=== PATIENT | female | born 1955 | race African-American/Black ===

== ENCOUNTER 2020-05-12 12:38 | Inpatient (IN) | payer OTHER ==
[~2020-05-12] VITALS: Ht 157.5 cm; Wt 92.1 kg
[2020-05-12] MEDS ORDERED: ALOG25TA2 PO (13:52)
[2020-05-12] MEDS ORDERED: HYDR25TA4 PO (13:52)
[2020-05-12] MEDS ORDERED: CALC-481 PO (13:52)
[2020-05-12] MEDS ORDERED: PIOG30TA10 PO (13:52)
[2020-05-12] MEDS ORDERED: LORA10TA7 PO (13:52)
[2020-05-12] MEDS ORDERED: GLIP10TA11 PO (13:52)
[2020-05-12] MEDS ORDERED: QUIN40TA14 PO (13:52)
[2020-05-12] MEDS ORDERED: ATOR40TA PO (13:52)
[2020-05-12] MEDS ORDERED: ACETAMINOPHEN ES 500 MG TABLET PO ONE (15:00)
--- NOTE | 2020-05-12 15:22 | NUR ---
BLOOD COLLECTED AND SENT TO LAB
--- NOTE | 2020-05-12 15:23 | NUR ---
PT CAME TO THE ER C/O FEVER AND COUGH X 7 DAYS. PT AAOX4, SATTING 89% ON RA, PLACED ON 3LPM O2 VIA N/C SATTING 98%. PT CONNECTED TO THE CLINIC OFFICE COORDINATOR AND POX
[2020-05-12] MEDS ORDERED: IV NS 0.9% 1,000 ML BAG IV ONE (15:30)
[2020-05-12 15:39] LABS: BASOPHILS % (AUTO) 0.2 % (0.0-2.0); HEMATOCRIT 39 % (33-45); HEMOGLOBIN 12.9 g/dL (11.5-14.8); MEAN CORPUSCULAR HGB CONC 33 g/dl (31.0-36.0); MEAN CORPUSCULAR VOLUME 79 fL (82-100); MONOCYTES # (AUTO) 0.6 /CMM (0.1-1.30); MONOCYTES % (AUTO) 8.2 % (2.0-12.0); NEUTROPHILS % (AUTO) 78.6 % (43.0-81.0); PLATELET COUNT (AUTO) 183 /CMM (150-450); RED BLOOD CELL COUNT(AUTO) 5.02 MIL/uL (4.0-5.2); WHITE BLOOD COUNT (AUTO) 7.7 K/uL (4.3-11.0)
[2020-05-12] MEDS ORDERED: ACETAMINOPHEN ES 500 MG TABLET ONE (15:42)
[2020-05-12 16:07] LABS: CALCIUM, SERUM 8.9 mg/dL (8.5-10.1); CARBON DIOXIDE 24 mmol/L (21-32); CHLORIDE 90 mmol/L (98-107); CREATININE 1.3 mg/dL (0.6-1.3); GLUCOSE 304 mg/dL (74-106); POTASSIUM 3.2 mmol/L (3.5-5.1); SODIUM SERUM 128 mmol/L (136-145); UREA NITROGEN, BLOOD 30 mg/dL (7-18)
--- NOTE | 2020-05-12 16:12 | NUR ---
PT UNABLE TO PROVIDE URINE AT THIS TIME. MD SHELBY
[2020-05-12 16:19] LABS: ALANINE AMINOTRANSFERASE 30 U/L (12-78); ALBUMIN 3.3 g/dL (3.4-5.0); ALKALINE PHOSPHATASE 88 U/L (46-116); ASPARTATE AMINOTRANSFERASE 35 U/L (15-37); B-TYPE NATRIURETIC PEPTIDE 347 PG/ML (0-125); BILIRUBIN,TOTAL 0.4 mg/dL (0.2-1.0); TOTAL PROTEIN, SERUM 8.4 g/dL (6.4-8.2)
--- NOTE | 2020-05-12 16:21 | NUR ---
BLOOD SAMPLE CLOTTED PER LAB, WILL REDRAW BLOOD SAMPLE
[2020-05-12 16:22] LABS: CREATINE KINASE, TOTAL 86 U/L (26-192); FERRITIN 518 ng/mL (8-388)
[2020-05-12 16:31] LABS: C-REACTIVE PROTEIN 28.8 mg/dL (0.0-0.9)
--- NOTE | 2020-05-12 17:51 | NUR ---
cllinical update provided to terell leonardo at [facility]
[2020-05-12 18:54] LABS: D-DIMER 1.64 mg/L(FEU (0.17-0.50)
[2020-05-12] MEDS ORDERED: ONDANSETRON HCL/PF 4 MG/2 ML VIAL IVP PRN (20:30)
[2020-05-12] MEDS ORDERED: POTASSIUM CHLORIDE 20 MEQ TAB.PRT.SR PO ONE ×2 (20:30→23:00)
[2020-05-12] MEDS ORDERED: DEXTROSE 50%-WATER 50 ML DISP.SYRIN IV PRN (20:30)
--- NOTE | 2020-05-12 21:04 | NUR ---
REPORT GIVEN TO СЕРГЕЙ KATZ FOR KORY
[2020-05-12] MEDS ORDERED: LISINOPRIL (20MG) 20 MG TABLET PO STA (21:06)
--- NOTE | 2020-05-12 21:51 | NUR ---
RN ADMITTING NOTE: Received report from ER Nurse, Lisa. Patient was transferred to unit via gurney. Patient awake, alert, and oriented x4. Able to make needs known. Oriented patient to room and educated on the use of the call light. Patient on 3L Oxygen nasal canula. Patient breathing equal and unlabored, No SOB or acute respiratory distress noted. Noted IV access on right hand, 20 gauge, patent, no erythema, or infiltration. Patient skin in tact. Safety measure in place, bed is in the lowest level, bed is locked, alarm is on, and side rails x2 are up, and call light is within reach. Will continue to monitor.
--- NOTE | 2020-05-12 21:51 | NUR ---
TAKEN UP TO ASSIGNED ROOM FOR KORY.
[2020-05-12] MEDS: AZITHROMYCIN 250 MG TABLET PO SCH (22:27)
[2020-05-12] MEDS: ATORVASTATIN 40 MG TABLET PO SCH (22:27)
[2020-05-12] MEDS: BLOOD SUGAR DIAGNOSTIC 1 EACH STRIP IN SCH (22:27)
[2020-05-12] MEDS: INSULIN REGULAR, HUMAN 100 UNIT/ML 3 ML VIAL SQ PRN (22:38)
[2020-05-12 22:53] VITALS: BP 172/72
--- NOTE | 2020-05-12 23:00 | NUR ---
Patient BP elevated, 172/72 HR 105. Rechecked 166/68 HR 84. Made MD aware, awaiting orders.
[2020-05-13] VITALS: BP 157/66
[2020-05-13] MEDS ORDERED: hydrALAZINE HCL IV 20 MG VIAL IV PRN
[2020-05-13 04:00] VITALS: BP 155/74
[2020-05-13] MEDS: INSULIN REGULAR, HUMAN 100 UNIT/ML 3 ML VIAL SQ PRN ×4 (06:50→21:28)
[2020-05-13] MEDS: BLOOD SUGAR DIAGNOSTIC 1 EACH STRIP IN SCH ×4 (06:53→21:10)
--- NOTE | 2020-05-13 07:52 | NUR ---
RN CLOSING NOTE: Patient in bed resting comfortably. Patient breathing even and unlabored with no SOB or acute respiratory distress. All needs were met. Safety measures maintained. Bed is in the lowest level, bed is locked, alarm is on, side rails x2 are up, and call light is within reach. Endorsed to morning nurse.
[2020-05-13 08:00] VITALS: BP 121/59
--- NOTE | 2020-05-13 08:00 | NUR ---
tele electrical fitter: initial assessment received pt in bed awake, a/ox4l; icelandic/andorran speaking. afebrile. no distress noted. will continue to monitor.
[2020-05-13] MEDS: glipiZIDE 10 MG TABLET PO SCH ×3 (08:57→16:49)
[2020-05-13] MEDS: AMLODIPINE BESYLATE 5 MG TABLET PO SCH (08:57)
[2020-05-13] MEDS: LORATADINE 10 MG TABLET PO SCH (08:57)
[2020-05-13] MEDS: PIOGLITAZONE HCL 15 MG TABLET PO SCH (08:57)
[2020-05-13] MEDS: LISINOPRIL (20MG) 20 MG TABLET PO SCH (08:57)
[2020-05-13] MEDS ORDERED: HYDROCHLOROTHIAZIDE 25 MG TABLET PO SCH (09:00)
[2020-05-13] MEDS ORDERED: Medication Not On Formulary EA (Alogliptin Benzoate (Alogliptin) 25 MG) PO SCH (09:00)
[2020-05-13] MEDS: ENOXAPARIN SODIUM 40 MG/0.4 ML DISP.SYRIN SQ SCH (09:05)
[2020-05-13] MEDS: LINAGLIPTIN 5 MG TABLET PO SCH (11:55)
--- NOTE | 2020-05-13 14:00 | NUR ---
tele rubber gasket inspector trimmer: pulmo consult seen by dr. desai with orders. orders acknowledged.
--- NOTE | 2020-05-13 14:50 | NUR ---
tele electrician apprentice powerhouse: notes covid 19 antigen collected and sent to lab.
[2020-05-13] MEDS: DEXAMETHASONE SOD PHOSPHATE 10 MG/ML VIAL IV SCH (15:00)
--- NOTE | 2020-05-13 15:00 | NUR ---
tele mechanical engineering teacher: md visit seen and examined by karen florez (plasma processor) with orders. orders acknowledged.
[2020-05-13 16:00] VITALS: BP 129/83
[2020-05-13] MEDS ORDERED: CEFTRIAXONE 1 G in IV D5W 50 ML IV SCH (17:00)
--- NOTE | 2020-05-13 17:01 | NUR ---
spoke with patient, states her is also admitted due to COVID-19 infection. Patient lives locally with spouse. Prior to admission, she was ambulatory and independent with adl's. Has no DME or homehealth reported. Has good family support. She plan to return home once discharge. Addendum: 05/13/20 at 1701 by STEPHEN OCHOA RN Amended: Links added.
--- NOTE | 2020-05-13 18:40 | NUR ---
tele otc clerk: notes in bed sounds asleep. no distress noted. needs attended. will continue to monitor.
--- NOTE | 2020-05-13 19:05 | NUR ---
tele welding machine operator plasma arc: notes report given to charlene for continuity of care.
[2020-05-13 20:00] VITALS: BP 129/72
[2020-05-13] MEDS: ATORVASTATIN 40 MG TABLET PO SCH (21:12)
[2020-05-13] MEDS: AZITHROMYCIN 250 MG TABLET PO SCH (21:12)
[2020-05-14] VITALS: BP 139/63
--- NOTE | 2020-05-14 01:33 | NUR ---
TELE-1/GRAIN COMMODITY MANAGER PT SATURATION 85-88% ON 3L NASAL CANNULA. PT PLACED ON SIMPLE MASK 10L SATURATION INCREASED TO 91% WILL CONTINUE TO MONITOR.
--- NOTE | 2020-05-14 02:22 | NUR ---
TELE-1/LOST CHARGE CARD CLERK PT PLACED BACK ON NASAL CANNULA 5L SATURATION 90% WILL CONTINUE TO MONITOR.
--- NOTE | 2020-05-14 02:41 | NUR ---
TELE-1/AUTOMATIC TRIMMING SEWER PT REFUSING TO WEAR SIMPLE MASK. COLIN RUSHING EXPLAINED IN SAMMARINESE THE RISKS OF LOW 02 SATURATION. PT STATES SHE DOES NOT WANT TO WEAR SIMPLE MASK. PT ALSO REFUSING TO WEAR TELE MONITOR. WILL CONINUE TO MONITOR.
[2020-05-14 04:00] VITALS: BP 132/59
[2020-05-14 07:03] LABS: CREATININE 1.1 mg/dL (0.6-1.3); MAGNESIUM 2.3 mg/dL (1.8-2.4); PHOSPHORUS 3.6 mg/dL (2.5-4.9); POTASSIUM 3.7 mmol/L (3.5-5.1)
--- NOTE | 2020-05-14 07:30 | NUR ---
TELE/RN OPENING NOTE Patient resting in bed, A&O x 4, Cymraes speaking. No complaints of pain/discomfort at this time. Breathing even and non-labored on 5 L oxygen via NC, no respiratory distress noted. No cardiac distress noted, on tele monitor, reading SR 70s. IV access noted on R hand #20, patent and intact, and flushing well. Sensation from all peripheral extremities intact. Side rails x2 up, bed locked to its lowest position, call light in hand. Will continue with current medical management.
[2020-05-14 08:00] VITALS: BP 100/75
[2020-05-14] MEDS: AMLODIPINE BESYLATE 5 MG TABLET PO SCH (09:00)
[2020-05-14] MEDS: LISINOPRIL (20MG) 20 MG TABLET PO SCH (09:00)
--- NOTE | 2020-05-14 09:00 | NUR ---
TELE/RN NOTE Increased patient's oxygen to 10 L via NC, since patient is saturating at 88% on 5 L oxygen. MD notified. Will continue to monitor, patient is currently saturating 94-96%.
[2020-05-14] MEDS: BLOOD SUGAR DIAGNOSTIC 1 EACH STRIP IN SCH ×4 (10:34→23:05)
[2020-05-14] MEDS: INSULIN REGULAR, HUMAN 100 UNIT/ML 3 ML VIAL SQ PRN ×5 (10:35→23:05)
[2020-05-14] MEDS: LORATADINE 10 MG TABLET PO SCH (10:36)
[2020-05-14] MEDS: glipiZIDE 10 MG TABLET PO SCH ×3 (10:36→16:59)
[2020-05-14] MEDS: PIOGLITAZONE HCL 15 MG TABLET PO SCH (10:38)
[2020-05-14] MEDS: LINAGLIPTIN 5 MG TABLET PO SCH (10:38)
[2020-05-14] MEDS: ENOXAPARIN SODIUM 40 MG/0.4 ML DISP.SYRIN SQ SCH (10:39)
--- NOTE | 2020-05-14 10:57 | NUR ---
TELE/RN NOTE Patient refused to eat breakfast, non-administered insulin. BS 281.
[2020-05-14] MEDS: DEXAMETHASONE SOD PHOSPHATE 10 MG/ML VIAL IV SCH (11:31)
[2020-05-14 12:00] VITALS: BP 119/64
[2020-05-14 13:50] LABS: THYROID STIMULATING HORMONE 0.28 uIU/mL (0.358-3.74); URIC ACID 7.3 mg/dL (2.6-7.2)
[2020-05-14] MEDS ORDERED: REMDESIVIR (CHARGED) 200 MG, *LOADING DOSE 1 EA in IV NS 0.9% 210 ML IV ONE (14:00)
[2020-05-14 16:00] VITALS: BP 144/63
--- NOTE | 2020-05-14 19:30 | NUR ---
TELE/RN OPENING NOTE Patient resting in bed, A&O x 4. All needs met and attended to. No complaints of pain/discomfort at this time. Breathing even and non-labored on 10 L oxygen via NC, no respiratory distress noted. No cardiac distress noted, on tele monitor, reading SR 70s. IV access noted on R hand #20, patent and intact, and flushing well. Sensation from all peripheral extremities intact. Fall precautions maintained. Will endorse to night filler nurse. Addendum: 05/14/20 at 1959 by ROQUE PETTY RN CORRECTION: CLOSING NOTE
--- NOTE | 2020-05-14 19:30 | NUR ---
TELE/RN CLOSING NOTE Patient resting in bed, A&O x 4. All needs met and attended to. No complaints of pain/discomfort at this time. Breathing even and non-labored on 10 L oxygen via NC, no respiratory distress noted. No cardiac distress noted, on tele monitor, reading SR 70s. IV access noted on R hand #20, patent and intact, and flushing well. Sensation from all peripheral extremities intact. Fall precautions maintained. Will endorse to police shift commander nurse.
--- NOTE | 2020-05-14 19:45 | NUR ---
TRADITIONAL MAORI HEALTH PRACTITIONER OPENING NOTES PATIENT AWAKE IN BED. PRIMARY LANGUAGE MALIAN, ABLE TO SPEAK/UNDERSTAND LITTLE SLOVENIAN. A/OX4. ON 10 L NC; NO S/S OF ACUTE RESPIRATORY DISTRESS; BREATHING IS EVEN AND UNLABORED. PATIENT REFUSING TO WEAR OXYGEN MASK AT THIS TIME; STATES SHE PREFERS TO WEAR NASAL CANULA. TELE MONITOR READING NSR, HEART RATE 79. IV PRESENT ON RIGHT HAND, SIZE 20, INTACT & PATENT, HEP LOCKED. CONTACT/DROPLET PRECAUTIONS IN PLACE FOR POSITIVE COVID 19. SAFETY MEASURES IN PLACE AND PATIENT'S NEEDS MET. BED LOCKED, HOB ELEVATED, SIDE RAILS X2, CALL LIGHT WITHIN REACH. WILL CONTINUE TO MONITOR.
[2020-05-14 20:00] VITALS: BP 142/67
[2020-05-14] MEDS: DOXYCYCLINE HYCLATE (100 MG) 100 MG TABLET PO SCH (20:43)
[2020-05-14] MEDS: CEFEPIME 1 GM in IV D5W 50 ML IV SCH (20:43)
[2020-05-14] MEDS: ATORVASTATIN 40 MG TABLET PO SCH (22:44)
[2020-05-15] VITALS: BP 155/81
[2020-05-15 04:00] VITALS: BP 158/88
[2020-05-15] MEDS: BLOOD SUGAR DIAGNOSTIC 1 EACH STRIP IN SCH ×4 (07:02→22:17)
[2020-05-15] MEDS: INSULIN REGULAR, HUMAN 100 UNIT/ML 3 ML VIAL SQ PRN ×4 (07:02→22:21)
--- NOTE | 2020-05-15 07:36 | NUR ---
WATER TREATMENT SPECIALIST CLOSING NOTES PATIENT AWAKE IN BED. A/OX4. ON 10 L NC; STILL REFUSING TO WEAR OXYGEN MASK AT THIS TIME; NO S/S OF ACUTE RESPIRATORY DISTRESS; BREATHING IS EVEN AND UNLABORED. NO C/O PAIN. TELE MONITOR READING NSR. IV PRESENT ON RIGHT HAND, SIZE 20, INTACT & PATENT, HEP LOCKED. SAFETY MEASURES IN PLACE AND PATIENT'S NEEDS MET. BED LOCKED, HOB ELEVATED, SIDE RAILS X2, CALL LIGHT WITHIN REACH. ENDORSED TO DAY SHIFT RN PLAN OF CARE.
--- NOTE | 2020-05-15 08:00 | NUR ---
RACK LOADER OPENING NOTES RECEIVED PT ON BED, AAOX4, ON O2 AT 10 LPM N/C, SATING 94%. REFUSED MASK NO PRESENCE OF ACUTE RESPIRATORY DISTRESS. ABD SOFT AND NON DISTENDED. DENIES PAIN AND DISCOMFORT. SKIN WARM TO TOUCH AND DRY. ON ISOLATION FOR + COVID19, PPE UTILIZED PER PROTOCOL. IV AT RIGHT HAND #20 H/L PATENT IN FLUSHING, NO S/SX OF INFILTRATION. TELE MONITOR SHOWS NSR 82. CONT TO MONITOR CARE.
[2020-05-15 08:22] LABS: BASOPHILS % (AUTO) 0.3 % (0.0-2.0); HEMATOCRIT 36 % (33-45); HEMOGLOBIN 12.2 g/dL (11.5-14.8); LYMPHOCYTES # (AUTO) 0.9 /CMM (0.8-4.8); LYMPHOCYTES % (AUTO) 9.1 % (20.0-44.0); MEAN CORPUSCULAR HGB CONC 34 g/dl (31.0-36.0); MEAN CORPUSCULAR VOLUME 78 fL (82-100); MONOCYTES # (AUTO) 0.9 /CMM (0.1-1.30); NEUTROPHILS # (AUTO) 7.9 /CMM (1.8-8.9); NEUTROPHILS % (AUTO) 81.6 % (43.0-81.0); PLATELET COUNT (AUTO) 233 /CMM (150-450); RED BLOOD CELL COUNT(AUTO) 4.68 MIL/uL (4.0-5.2); WHITE BLOOD COUNT (AUTO) 9.7 K/uL (4.3-11.0)
[2020-05-15] MEDS: LISINOPRIL (20MG) 20 MG TABLET PO SCH (08:58)
[2020-05-15] MEDS: PIOGLITAZONE HCL 15 MG TABLET PO SCH (08:59)
[2020-05-15] MEDS: AMLODIPINE BESYLATE 5 MG TABLET PO SCH (08:59)
[2020-05-15] MEDS: LORATADINE 10 MG TABLET PO SCH (08:59)
[2020-05-15] MEDS: glipiZIDE 10 MG TABLET PO SCH (08:59)
[2020-05-15] MEDS: DOXYCYCLINE HYCLATE (100 MG) 100 MG TABLET PO SCH ×2 (08:59→20:19)
[2020-05-15] MEDS: LINAGLIPTIN 5 MG TABLET PO SCH (08:59)
[2020-05-15] MEDS: DEXAMETHASONE SOD PHOSPHATE 10 MG/ML VIAL IV SCH (08:59)
[2020-05-15] MEDS: ENOXAPARIN SODIUM 40 MG/0.4 ML DISP.SYRIN SQ SCH (09:00)
[2020-05-15] MEDS: CEFEPIME 1 GM in IV D5W 50 ML IV SCH ×2 (09:00→20:19)
[2020-05-15 09:52] LABS: ALBUMIN 2.7 g/dL (3.4-5.0); BILIRUBIN,DIRECT 0.1 mg/dL (0.0-0.2); BILIRUBIN,TOTAL 0.4 mg/dL (0.2-1.0); CALCIUM, SERUM 9.3 mg/dL (8.5-10.1); POTASSIUM 3.8 mmol/L (3.5-5.1); TOTAL PROTEIN, SERUM 7.6 g/dL (6.4-8.2)
[2020-05-15 10:44] VITALS: BP 158/77
--- NOTE | 2020-05-15 12:12 | NUR ---
EDITOR MANAGING NEWSPAPER NOTES BS 408, RE-CHECKED 400. [address] FLANNERY NOTED[address] LISPRO ORDERED BY .
[2020-05-15 13:16] VITALS: BP 148/67
--- NOTE | 2020-05-15 14:50 | NUR ---
PROFESSOR OF HISTORY NOTES REMDESIVIR IV STILL MIXING PER PHARMACY, TO FF UP FOR ADMIN DUE
[2020-05-15] MEDS: REMDESIVIR (CHARGED) 100 MG in IV NS 0.9% 230 ML IV SCH (15:07)
[2020-05-15 16:55] VITALS: BP 143/67
--- NOTE | 2020-05-15 18:04 | NUR ---
TRUST MANAGER NOTES PER PHARMACY, LISPRO NOT AVAILABLE. DR. FLANNERY NOTIFIED WITH NEW ORDER TO CHANGE NPH SAME ORDER. ORDER READ BACK, NOTED AND CARRIED OUT. HU FROM PHARMACY NOTIFIED. WILL SEND OUT.
[2020-05-15] MEDS ORDERED: INSULIN ASPART/LISPRO 100 UNIT/ML CARTRIDGE SQ SCH (18:30)
[2020-05-15] MEDS: INSULIN NPH, HUMAN ISOPHANE 100 UNIT/ML VIAL SQ SCH (18:45)
--- NOTE | 2020-05-15 19:33 | NUR ---
DIALYSIS CLINICAL MANAGER CLOSING NOTES PT AAOX4, RESPONSIVE TO ALL STIMULI. TOLERATING O2 AT 7 LPM VIA NASAL CANNULA SATING >92%, NO PRESENCE OF ACUTE RESPIRATORY DISTRESS. NO CRITICAL CHANGE OF CONDITION. TELE MONITOR SHOWS NSR. PT COVID-19 POSITIVE, PPE UTILIZED PER HOSPITAL PROTOCOL. ALL CONCERNS ATTENDED. BED IN LOW LOCKED, SRX2 UP FOR SAFETY, CALL LIGHT WITHIN REACHED. ENDORSED CARE TO NEXT SHIFT.
[2020-05-15 20:00] VITALS: BP 152/71
[2020-05-15] MEDS ORDERED: INSULIN GLARGINE, 100 UNIT/ML CARTRIDGE SQ SCH (22:00)
[2020-05-15] MEDS: ATORVASTATIN 40 MG TABLET PO SCH (22:21)
[2020-05-16] VITALS: BP 155/73
[2020-05-16 04:00] VITALS: BP 140/63
--- NOTE | 2020-05-16 07:30 | NUR ---
RN OPENING NOTE PT AWAKE SITTING UP IN BED ON NC 6LPM WITH NO SIGNS OF RESP DISTRESS OR SOB, BREATHING IS UNLABORED AND EVEN. PT IS A/Ox4, HAS A RT HAND #20 INTACT, FLUSHED, AND SL WITH NO SIGNS OF INFECTION OR INFILTRATION. PT DENIES PAIN AT THIS TIME. ALL SAFETY PRECAUTIONS IN PLACE, WILL CONTINUE TO MONITOR
--- NOTE | 2020-05-16 07:30 | NUR ---
RN NOTE PT STAYED STABLE DURING MY SHIFT,REPORT GIVEN TO INCOMING SHIFT FOR KORY.
[2020-05-16 07:36] LABS: BASOPHILS % (AUTO) 0.1 % (0.0-2.0); EOSINOPHILS % (AUTO) 0.1 % (0.0-6.0); HEMATOCRIT 36 % (33-45); LYMPHOCYTES # (AUTO) 1.1 /CMM (0.8-4.8); LYMPHOCYTES % (AUTO) 11.2 % (20.0-44.0); MEAN CORPUSCULAR HGB CONC 33 g/dl (31.0-36.0); MEAN CORPUSCULAR VOLUME 77 fL (82-100); MONOCYTES # (AUTO) 0.9 /CMM (0.1-1.30); MONOCYTES % (AUTO) 9.7 % (2.0-12.0); NEUTROPHILS # (AUTO) 7.5 /CMM (1.8-8.9); NEUTROPHILS % (AUTO) 78.9 % (43.0-81.0); PLATELET COUNT (AUTO) 277 /CMM (150-450); RED BLOOD CELL COUNT(AUTO) 4.66 MIL/uL (4.0-5.2); WHITE BLOOD COUNT (AUTO) 9.5 K/uL (4.3-11.0)
[2020-05-16 07:57] LABS: ALBUMIN 2.6 g/dL (3.4-5.0); BILIRUBIN,DIRECT 0.1 mg/dL (0.0-0.2); BILIRUBIN,TOTAL 0.3 mg/dL (0.2-1.0); CALCIUM, SERUM 9.3 mg/dL (8.5-10.1); CREATININE 0.9 mg/dL (0.6-1.3); POTASSIUM 3.3 mmol/L (3.5-5.1); TOTAL PROTEIN, SERUM 7.2 g/dL (6.4-8.2)
[2020-05-16 08:00] VITALS: BP 143/64
[2020-05-16] MEDS: BLOOD SUGAR DIAGNOSTIC 1 EACH STRIP IN SCH ×4 (10:59→22:00)
[2020-05-16] MEDS: CEFEPIME 1 GM in IV D5W 50 ML IV SCH ×2 (11:00→21:05)
[2020-05-16] MEDS: AMLODIPINE BESYLATE 5 MG TABLET PO SCH (11:01)
[2020-05-16] MEDS: DOXYCYCLINE HYCLATE (100 MG) 100 MG TABLET PO SCH ×2 (11:01→21:47)
[2020-05-16] MEDS: DEXAMETHASONE SOD PHOSPHATE 10 MG/ML VIAL IV SCH (11:02)
[2020-05-16] MEDS: LORATADINE 10 MG TABLET PO SCH (11:03)
[2020-05-16] MEDS: LISINOPRIL (20MG) 20 MG TABLET PO SCH (11:03)
[2020-05-16 11:05] LABS: BAND % (MANUAL) 2 % (0.0-5.0); LYMPHOCYTES % (MANUAL) 21 % (16-48); MONOCYTES % (MANUAL) 2 % (0-11.0); NEUTROPHILS % (MANUAL) 75 (42-76)
[2020-05-16] MEDS: INSULIN REGULAR, HUMAN 100 UNIT/ML 3 ML VIAL SQ PRN ×4 (11:08→23:54)
[2020-05-16] MEDS: ENOXAPARIN SODIUM 40 MG/0.4 ML DISP.SYRIN SQ SCH (11:09)
[2020-05-16] MEDS: INSULIN NPH, HUMAN ISOPHANE 100 UNIT/ML VIAL SQ SCH ×2 (11:10→17:45)
[2020-05-16] MEDS ORDERED: POTASSIUM CHLORIDE 20 MEQ TAB.PRT.SR PO SCH ×2 (11:30→13:30)
[2020-05-16 12:00] VITALS: BP 116/63
--- NOTE | 2020-05-16 13:00 | NUR ---
RN NOTE PUT PT ON MASK AT 6LPM TOLERATING WELL. NO SIGNS OF RESP DISTRESS OR SOB. PT DENIES PAIN Addendum: 05/16/20 at 2136 by YANET NEIL RN WRONG PT
--- NOTE | 2020-05-16 13:27 | NUR ---
RN NOTE WAS NOT ABLE TO ADMIN POTASSIUM CHLORIDE AT 1330. CALLED PHARM, THEY WILL RESCHEDULE FOR NOW
[2020-05-16] MEDS: REMDESIVIR (CHARGED) 100 MG in IV NS 0.9% 230 ML IV SCH (15:05)
--- NOTE | 2020-05-16 15:30 | NUR ---
RN NOTE PT RESTING IN BED COMFORTABLY, NO SIGNS FO RESP DISTRESS OR SOB
[2020-05-16 16:00] VITALS: BP 113/55
[2020-05-16 20:00] VITALS: BP 141/60
--- NOTE | 2020-05-16 21:37 | NUR ---
RN CLOSING NOTE PT IN STABLE CONDITION. NO CHANGES TO PT STATUS DURING SHIFT. NO SIGNS OF RESP DISTRESS OR SOB. ALL SAFETY PRECAUTIONS IN PLACE. WILL ENDORSE KORY TO ONCOMING RN
[2020-05-16] MEDS: ACETAMINOPHEN 325 MG TABLET PO PRN (21:46)
[2020-05-16] MEDS: ATORVASTATIN 40 MG TABLET PO SCH (21:47)
[2020-05-16] MEDS ORDERED: INSULIN GLARGINE, 100 UNIT/ML CARTRIDGE SQ SCH (22:00)
[2020-05-17] VITALS (7 sets, daily range): BP systolic 95–162; BP diastolic 56–94
--- NOTE | 2020-05-17 06:18 | NUR ---
REMAINS ALERT AND ORIENTATED 4 SPEECH CLEAR CUBAN SPEAKING BUT WITH SOME SPANISH UNDERSTANDING N/C 6 LITERS SATS 93% COMFORTABLE WT 216 THI AM CONV PLASMA ORDERED 05/16 NOT GIVEN YET LATEST TELE READING SR
--- NOTE | 2020-05-17 07:30 | NUR ---
PT RECEIVED IN BED, ON RA O2 SAT 96-98%. NO RESPIRATORY DISTRESS OR SOB. PT HAS BLE WEAKNESS WITH FUNGAL RASH ON LEGS, TREATED WITH LOTRIMIN. PT HAS REGULAR DIET. PT RFA #20 SL. PT IN BED LOCKED LOWEST POSITION, CALL LIGHT WITHIN REACH, ALL SAFETY MEASURE IN PLACE. WILL CONTINUE TO MONITOR CLOSELY
[2020-05-17 07:43] LABS: D-DIMER 1.15 mg/L(FEU (0.17-0.50)
[2020-05-17 08:20] LABS: ALBUMIN 2.6 g/dL (3.4-5.0); BILIRUBIN,DIRECT 0.1 mg/dL (0.0-0.2); BILIRUBIN,TOTAL 0.4 mg/dL (0.2-1.0); CALCIUM, SERUM 9.4 mg/dL (8.5-10.1); CREATININE 0.8 mg/dL (0.6-1.3); POTASSIUM 3.5 mmol/L (3.5-5.1); TOTAL PROTEIN, SERUM 7.1 g/dL (6.4-8.2)
[2020-05-17 09:18] LABS: BASOPHILS % (AUTO) 0.1 % (0.0-2.0); EOSINOPHILS % (AUTO) 0.1 % (0.0-6.0); HEMATOCRIT 38 % (33-45); HEMOGLOBIN 12.3 g/dL (11.5-14.8); LYMPHOCYTES # (AUTO) 1.3 /CMM (0.8-4.8); LYMPHOCYTES % (AUTO) 12.8 % (20.0-44.0); MEAN CORPUSCULAR HGB CONC 33 g/dl (31.0-36.0); MEAN CORPUSCULAR VOLUME 79 fL (82-100); NEUTROPHILS # (AUTO) 7.6 /CMM (1.8-8.9); PLATELET COUNT (AUTO) 296 /CMM (150-450); RED BLOOD CELL COUNT(AUTO) 4.77 MIL/uL (4.0-5.2); WHITE BLOOD COUNT (AUTO) 9.8 K/uL (4.3-11.0)
[2020-05-17] MEDS: LORATADINE 10 MG TABLET PO SCH (09:18)
[2020-05-17] MEDS: DOXYCYCLINE HYCLATE (100 MG) 100 MG TABLET PO SCH ×2 (09:18→21:19)
[2020-05-17] MEDS: AMLODIPINE BESYLATE 5 MG TABLET PO SCH (09:18)
[2020-05-17] MEDS: BLOOD SUGAR DIAGNOSTIC 1 EACH STRIP IN SCH ×4 (09:19→21:17)
[2020-05-17] MEDS: DEXAMETHASONE SOD PHOSPHATE 10 MG/ML VIAL IV SCH (09:19)
[2020-05-17] MEDS: LISINOPRIL (20MG) 20 MG TABLET PO SCH (09:19)
[2020-05-17] MEDS: CEFEPIME 1 GM in IV D5W 50 ML IV SCH ×3 (09:21→21:17)
[2020-05-17] MEDS: ENOXAPARIN SODIUM 40 MG/0.4 ML DISP.SYRIN SQ SCH (09:23)
[2020-05-17] MEDS: INSULIN REGULAR, HUMAN 100 UNIT/ML 3 ML VIAL SQ PRN ×3 (13:31→21:41)
[2020-05-17] MEDS: REMDESIVIR (CHARGED) 100 MG in IV NS 0.9% 230 ML IV SCH (14:29)
[2020-05-17] MEDS: INSULIN NPH, HUMAN ISOPHANE 100 UNIT/ML VIAL SQ SCH (17:57)
--- NOTE | 2020-05-17 19:00 | NUR ---
CONSENT OBTAINED FOR CONVALESCENT PLASMA AND PLACED IN CHART
--- NOTE | 2020-05-17 19:30 | NUR ---
PT REMAINS IN BED, ALERT AND ORIENTED X 4. PT ON NC AT 6L. O2 SATURATION 95% NO RESPIRATORY DISTRESS OR SOB. PT RESTING COMFORTABLY. PT HAS RIGHT HAND IV. PT COMPLAINS OF PAIN AT IV SITE, IV APPEARS INFILTRATED. ENDORSED TO ONCOMING RN ALBINA. PT HAD GOOD APPETITE TODAY, EATING 75% OF MEALS TODAY. PT IN BED LOCKED LOWEST POSITION, CALL LIGHT WITHIN REACH, ALL SAFETY MEASURES IN PLACE. REPORT GIVEN TO ALBINA FOR KORY
[2020-05-17] MEDS: ATORVASTATIN 40 MG TABLET PO SCH (21:19)
[2020-05-17] MEDS ORDERED: INSULIN GLARGINE, 100 UNIT/ML CARTRIDGE SQ SCH (22:00)
[2020-05-18] VITALS: BP 187/66
[2020-05-18] MEDS: ACETAMINOPHEN 325 MG TABLET PO PRN (01:51)
[2020-05-18 04:00] VITALS: BP 156/64
[2020-05-18 06:58] LABS: BASOPHILS % (AUTO) 0.2 % (0.0-2.0); EOSINOPHILS % (AUTO) 0.9 % (0.0-6.0); HEMATOCRIT 35 % (33-45); HEMOGLOBIN 11.6 g/dL (11.5-14.8); LYMPHOCYTES # (AUTO) 1.9 /CMM (0.8-4.8); LYMPHOCYTES % (AUTO) 18.3 % (20.0-44.0); MEAN CORPUSCULAR HGB CONC 33 g/dl (31.0-36.0); MEAN CORPUSCULAR VOLUME 78 fL (82-100); MONOCYTES % (AUTO) 9.8 % (2.0-12.0); NEUTROPHILS # (AUTO) 7.2 /CMM (1.8-8.9); NEUTROPHILS % (AUTO) 70.8 % (43.0-81.0); PLATELET COUNT (AUTO) 321 /CMM (150-450); WHITE BLOOD COUNT (AUTO) 10.2 K/uL (4.3-11.0)
[2020-05-18 07:11] LABS: ALBUMIN 2.4 g/dL (3.4-5.0); BILIRUBIN,DIRECT 0.1 mg/dL (0.0-0.2); BILIRUBIN,TOTAL 0.4 mg/dL (0.2-1.0); CREATININE 0.7 mg/dL (0.6-1.3); POTASSIUM 3.5 mmol/L (3.5-5.1); TOTAL PROTEIN, SERUM 6.6 g/dL (6.4-8.2)
--- NOTE | 2020-05-18 07:18 | NUR ---
TELE-1/BORE MINER OPERATOR REPORT TO SONIA RUSHING FOR CONT OF CARE.
[2020-05-18] MEDS: BLOOD SUGAR DIAGNOSTIC 1 EACH STRIP IN SCH ×4 (10:45→21:52)
[2020-05-18] MEDS: CEFEPIME 1 GM in IV D5W 50 ML IV SCH ×2 (10:45→21:14)
[2020-05-18] MEDS: LORATADINE 10 MG TABLET PO SCH (10:46)
[2020-05-18] MEDS: DOXYCYCLINE HYCLATE (100 MG) 100 MG TABLET PO SCH ×2 (10:46→21:14)
[2020-05-18] MEDS: DEXAMETHASONE SOD PHOSPHATE 10 MG/ML VIAL IV SCH (10:46)
[2020-05-18] MEDS: AMLODIPINE BESYLATE 5 MG TABLET PO SCH (10:47)
[2020-05-18] MEDS: LISINOPRIL (20MG) 20 MG TABLET PO SCH (10:47)
[2020-05-18] MEDS: INSULIN NPH, HUMAN ISOPHANE 100 UNIT/ML VIAL SQ SCH ×2 (10:50→17:24)
[2020-05-18] MEDS: ENOXAPARIN SODIUM 40 MG/0.4 ML DISP.SYRIN SQ SCH (10:51)
[2020-05-18 11:30] VITALS: BP 137/61
[2020-05-18 12:00] VITALS: BP 114/64
[2020-05-18] MEDS: REMDESIVIR (CHARGED) 100 MG in IV NS 0.9% 230 ML IV SCH (14:33)
[2020-05-18] MEDS: INSULIN REGULAR, HUMAN 100 UNIT/ML 3 ML VIAL SQ PRN ×2 (17:23→22:24)
[2020-05-18 18:32] VITALS: BP 114/54
--- NOTE | 2020-05-18 19:30 | NUR ---
BLOCK PILER NOTES RECEIVED LAYING COMFORTABLY ON BED,A/O X4,SPEAK WOLOF,UNDERSTAND OCCITAN.SR-85 ON TELE MONITOR.O2 SAT WITH IN NORMAL LIMITS AT 6L/NC.NO SOB.ISOLATION FOR COVID 19 POSITIVE.AMBULATES WITH STEADY GAIT.DENIES DISCOMFORTS AT THE MOMENT.CALL LIGHT IN REACH,NEEDS ANTICIPATED.
--- NOTE | 2020-05-18 19:33 | NUR ---
Patient stable on oxygen 2L via NC. IV line flushing well. High blood sugar level managed with Insulin. Patient alert and oriented x4. Ambulatory with assistance. Convalescent plasma is pending. Lab called to clarify availability of plasma and it is not ready yet. Compliant to medication. Will endorse to next shift for KORY
[2020-05-18 20:00] VITALS: BP 151/65
[2020-05-18] MEDS: ATORVASTATIN 40 MG TABLET PO SCH (21:14)
[2020-05-18] MEDS: INSULIN GLARGINE, 100 UNIT/ML CARTRIDGE SQ SCH (21:56)
--- NOTE | 2020-05-18 22:00 | NUR ---
STOCK RAISER NOTES ACCU-CHECK BLOOD SUGAR CHECK 340,COVERED WITH HUMULIN R 8UNITS PER SLIDING SCALE,ALONG WITH LANTUS 18 UNITS ORDERED Q HS.SNACKS AT BEDSIDE.
[2020-05-19] VITALS (10 sets, daily range): BP systolic 132–163; BP diastolic 60–73
--- NOTE | 2020-05-19 04:08 | NUR ---
PROPERTY MAINTENANCE SUPERVISOR NOTES COVID REST POSITIVE,CONVALESCENT PLASMA TRANSFUSION STARTED THIS TIME VIA IV PUMP ON RIGHT HAND SALINE LOCK.ORAL TEMP OF 98.5.
--- NOTE | 2020-05-19 06:15 | NUR ---
EXPERT MEDICAL WRITER NOTES CONVALESCENT PLASMA TRANSFUSED WITHOUT ADVERSE REACTION NOTED.VITAL SIGNS WITH IN NORMAL LIMITS.
--- NOTE | 2020-05-19 06:40 | NUR ---
SOFTWARE ENGINEER WEB APPLICATIONS NOTES ON BED CALM,SLEPT WELL,SALINE LOCK REMAINS PATENT.NO EPISODE OF SOB NOTED.AFEBRILE.CALL LIGHT IN REACH,NEEDS ATTENDED.WILL ENDORSE TO DAY NURSE FOR KORY.
--- NOTE | 2020-05-19 07:00 | NUR ---
SALES REPRESENTATIVE CONSULTANT OPENING NOTES RECEIVED PT AWAKE IN BED AT THIS TIME. PT AOX4. PT ABLE TO VERBALIZE NEEDS. HEBREW SPEAKING. NO SOB NOTED, NO S/S OF ANY ACUTE DISTRESS NOTED. NO C/O PAIN AT THIS TIME. RESPIRATIONS ARE EVEN AND UNLABORED. PT ON OXYGEN 6LPM VIA NC. IV ACCESS NOTED IN R-HAND G#20, INTACT, PATENT AND FLUSHING WELL. SAFETY PRECAUTION IN PLACE AND MAINTAINED AT ALL TIMES. BED IN LOWEST LOCKED POSITION, HOB ELEVATED, SIDE RAILS UP X 2, CALL LIGHT AND TABLE WITHIN REACH. WILL CONTINUE TO MONITOR
[2020-05-19 07:27] LABS: BASOPHILS % (AUTO) 0.2 % (0.0-2.0); EOSINOPHILS % (AUTO) 0.8 % (0.0-6.0); HEMATOCRIT 34 % (33-45); HEMOGLOBIN 11.2 g/dL (11.5-14.8); LYMPHOCYTES # (AUTO) 1.4 /CMM (0.8-4.8); LYMPHOCYTES % (AUTO) 12.3 % (20.0-44.0); MEAN CORPUSCULAR HGB CONC 33 g/dl (31.0-36.0); MEAN CORPUSCULAR VOLUME 80 fL (82-100); MONOCYTES # (AUTO) 1.1 /CMM (0.1-1.30); MONOCYTES % (AUTO) 9.8 % (2.0-12.0); NEUTROPHILS # (AUTO) 8.5 /CMM (1.8-8.9); NEUTROPHILS % (AUTO) 76.9 % (43.0-81.0); PLATELET COUNT (AUTO) 336 /CMM (150-450); RED BLOOD CELL COUNT(AUTO) 4.33 MIL/uL (4.0-5.2); WHITE BLOOD COUNT (AUTO) 11.1 K/uL (4.3-11.0)
[2020-05-19 07:46] LABS: CREATININE 0.7 mg/dL (0.6-1.3); POTASSIUM 3.9 mmol/L (3.5-5.1)
[2020-05-19 08:05] LABS: CALCIUM, SERUM 9.3 mg/dL (8.5-10.1)
[2020-05-19] MEDS: BLOOD SUGAR DIAGNOSTIC 1 EACH STRIP IN SCH ×4 (09:09→23:01)
[2020-05-19] MEDS: ENOXAPARIN SODIUM 40 MG/0.4 ML DISP.SYRIN SQ SCH (09:11)
[2020-05-19] MEDS: INSULIN REGULAR, HUMAN 100 UNIT/ML 3 ML VIAL SQ PRN ×3 (09:13→17:43)
[2020-05-19] MEDS: LORATADINE 10 MG TABLET PO SCH (09:14)
[2020-05-19] MEDS: DOXYCYCLINE HYCLATE (100 MG) 100 MG TABLET PO SCH ×2 (09:15→23:00)
[2020-05-19] MEDS: DEXAMETHASONE SOD PHOSPHATE 10 MG/ML VIAL IV SCH (09:15)
[2020-05-19] MEDS: LISINOPRIL (20MG) 20 MG TABLET PO SCH (09:15)
[2020-05-19] MEDS: AMLODIPINE BESYLATE 5 MG TABLET PO SCH (09:15)
[2020-05-19] MEDS: INSULIN NPH, HUMAN ISOPHANE 100 UNIT/ML VIAL SQ SCH ×2 (09:16→17:42)
[2020-05-19] MEDS: CEFEPIME 1 GM in IV D5W 50 ML IV SCH ×2 (09:17→21:19)
[2020-05-19 09:23] LABS: ALBUMIN 2.6 g/dL (3.4-5.0); BILIRUBIN,DIRECT 0.1 mg/dL (0.0-0.2); BILIRUBIN,TOTAL 0.5 mg/dL (0.2-1.0); TOTAL PROTEIN, SERUM 6.9 g/dL (6.4-8.2)
[2020-05-19] MEDS: ATORVASTATIN 40 MG TABLET PO SCH (23:00)
[2020-05-19] MEDS: INSULIN GLARGINE, 100 UNIT/ML CARTRIDGE SQ SCH (23:11)
[2020-05-20] VITALS (9 sets, daily range): BP systolic 121–151; BP diastolic 38–67
--- NOTE | 2020-05-20 00:12 | NUR ---
KISHA/RN DURING INITIAL SHIFT ROUND, PATIENT WAS AWAKE, ALERT, ORIENTED, COMFORTABLE, NO C/O PAIN, NO SIGNS OF DISTRESS NOTED, ON 6L O2, CALL LIGHT IN REACH.
--- NOTE | 2020-05-20 07:21 | NUR ---
KISHA/RN PATIENT IS STILL SLEEPING, APPEAR COMFORTABLE, NO DISTRESS NOTED, CALL LIGHT IN REACH, ALL NEEDS ATTENDED AT THIS TIME, WILL CONTINUE TO MONITOR. Addendum: 05/20/20 at 0722 by AARTI LESTER RN PATIENT WAS ENDORSED TO NEXT RN FOR CONTINUITY OF CARE.
--- NOTE | 2020-05-20 07:42 | NUR ---
BISCUIT PACKER OPENING NOTES PATIENT AWAKE, A/O X4. ON OXYGEN THERAPY AT 6 LPM; SATURATING WELL AT THIS TIME. NO COMPLAINS OF PAIN. R HAND IV ACCESS G #20 PRESENT AND INTACT. SAFETY PRECAUTIONS IN PLACE; BED IN LOW POSITION AND LOCKED, RAILS UP X2, CALL LIGHT WITHIN REACH. WILL CONTINUE TO MONITOR PATIENT.
[2020-05-20] MEDS: BLOOD SUGAR DIAGNOSTIC 1 EACH STRIP IN SCH ×4 (08:00→23:51)
[2020-05-20] MEDS: INSULIN REGULAR, HUMAN 100 UNIT/ML 3 ML VIAL SQ PRN ×4 (08:08→23:49)
[2020-05-20] MEDS: CEFEPIME 1 GM in IV D5W 50 ML IV SCH (08:38)
[2020-05-20] MEDS: DEXAMETHASONE SOD PHOSPHATE 10 MG/ML VIAL IV SCH (08:38)
[2020-05-20] MEDS: LORATADINE 10 MG TABLET PO SCH (08:39)
[2020-05-20] MEDS: DOXYCYCLINE HYCLATE (100 MG) 100 MG TABLET PO SCH (08:39)
[2020-05-20] MEDS: LISINOPRIL (20MG) 20 MG TABLET PO SCH (08:40)
[2020-05-20] MEDS: AMLODIPINE BESYLATE 5 MG TABLET PO SCH (08:41)
[2020-05-20] MEDS: ENOXAPARIN SODIUM 40 MG/0.4 ML DISP.SYRIN SQ SCH (08:41)
[2020-05-20] MEDS: INSULIN NPH, HUMAN ISOPHANE 100 UNIT/ML VIAL SQ SCH ×2 (09:00→18:30)
--- NOTE | 2020-05-20 17:19 | NUR ---
JUNIOR PHP DEVELOPER NOTES 1700 ACCU-CHECK WITH BLOOD SUGAR OF 512 AFTER REPEAT TEST. PER PROTOCOL 10 UNITS OF INSULIN GIVEN AND MD CONTACTED.
--- NOTE | 2020-05-20 18:44 | NUR ---
HARDBOARD FACTORY WORKER CLOSING NOTES PATIENT AWAKE, A/O X4 AND WATCHING TV. ON OXYGEN THERAPY AT 4 LPM; SATURATING WELL AT THIS TIME. NO COMPLAINS OF PAIN DURING SHIFT. R HAND IV ACCESS G #20 PRESENT AND INTACT. ALL NEEDS ATTENDED TO THROUGHOUT THE DAY. SAFETY PRECAUTIONS IN PLACE; BED IN LOW POSITION AND LOCKED, RAILS UP X2, CALL LIGHT WITHIN REACH. WILL ENDORSE TO CEMENT BREAKER NURSE.
[2020-05-20] MEDS: ACETAMINOPHEN 325 MG TABLET PO PRN (21:05)
[2020-05-20] MEDS: ATORVASTATIN 40 MG TABLET PO SCH (21:05)
--- NOTE | 2020-05-20 21:34 | NUR ---
KISHA/RN TYLENOL 650 MG PO WAS GIVEN PER PATIENT'S REQUEST FOR C/O BACK PAIN. WILL MONITOR.
[2020-05-20] MEDS: INSULIN GLARGINE, 100 UNIT/ML CARTRIDGE SQ SCH (23:48)
[2020-05-21] VITALS: BP 144/60
[2020-05-21 04:00] VITALS: BP 142/53
--- NOTE | 2020-05-21 06:24 | NUR ---
KISHA/RN PATIENT IS STILL SLEEPING AT THIS TIME, APPEAR COMFORTABLE, NO DISTRESS NOTED CALL LIGHT IN REACH, ALL NEEDS ATTENDED AT THIS TIME, WILL CONTINUE TO MONITOR.
--- NOTE | 2020-05-21 07:36 | NUR ---
SKI PATROL OFFICER OPENING NOTES PATIENT ASLEEP AT THIS TIME. ON OXYGEN THERAPY AT 4 LPM; SATURATING WELL AT THIS TIME. NO COMPLAINS OF PAIN. R HAND IV ACCESS G #20 PRESENT AND INTACT. SAFETY PRECAUTIONS IN PLACE; BED IN LOW POSITION AND LOCKED, RAILS UP X2, CALL LIGHT WITHIN REACH. WILL CONTINUE TO MONITOR PATIENT.
[2020-05-21] MEDS: BLOOD SUGAR DIAGNOSTIC 1 EACH STRIP IN SCH ×4 (07:59→22:01)
--- NOTE | 2020-05-21 08:01 | NUR ---
CROSSCUTTER NOTES 4563 ACCU-CHECK WITH BS 129. PER PROTOCOL NO COVERAGE.
[2020-05-21] MEDS: LORATADINE 10 MG TABLET PO SCH (08:19)
[2020-05-21] MEDS: AMLODIPINE BESYLATE 5 MG TABLET PO SCH (08:19)
[2020-05-21] MEDS: DEXAMETHASONE SOD PHOSPHATE 10 MG/ML VIAL IV SCH (08:20)
[2020-05-21] MEDS: LISINOPRIL (20MG) 20 MG TABLET PO SCH (08:20)
[2020-05-21] MEDS: ENOXAPARIN SODIUM 40 MG/0.4 ML DISP.SYRIN SQ SCH (08:23)
[2020-05-21] MEDS: INSULIN NPH, HUMAN ISOPHANE 100 UNIT/ML VIAL SQ SCH ×2 (08:27→17:02)
[2020-05-21 10:15] VITALS: BP 160/68
[2020-05-21] MEDS: INSULIN REGULAR, HUMAN 100 UNIT/ML 3 ML VIAL SQ PRN ×3 (11:58→22:04)
[2020-05-21 12:19] VITALS: BP 126/60
[2020-05-21 16:04] VITALS: BP 118/54
--- NOTE | 2020-05-21 18:44 | NUR ---
FIELD DIRECTOR CLOSING NOTES PATIENT AWAKE, A/O X4 AND WATCHING TV AT THIS TIME. ON OXYGEN THERAPY AT 2 LPM; SATURATING WELL DURING SHIFT. NO COMPLAINS OF PAIN. R HAND IV ACCESS G #20 PRESENT AND INTACT. ALL NEEDS ATTENDED THROUGHOUT THE DAY. PER ALDO FLANNERY PATIENT OK TO D/C BUT PATIENT REFUSES; SHE WANTS TO STAY WITH HER . SAFETY PRECAUTIONS IN PLACE; BED IN LOW POSITION AND LOCKED, RAILS UP X2, CALL LIGHT WITHIN REACH. WILL ENDORSE NO ACCOUNT SPECIALIST NURSE.
--- NOTE | 2020-05-21 19:05 | NUR ---
RECEIVED PT ON BED AWAKE A/O X3 ABLE TO VERBALIZED NEEDS, UZBEK SPEAKING WITH LITTLE MALDIVIAN, ON O2 4L SPO2 95% NO SOB NOTED, TELE MONITOR READS SINUS RHYTHM 60-70, ABLE TO EAT AND DRINK, ABLE TO AMBULATE TO BATHROOM, DROPLET ISOLATION MAINTAINED FOR COVID 19 BED ON LOWEST POSITION AND LOCKED SIDE RAILS UP X 2 CALL LIGHT WITHIN REACH WILL CONT TO MONITOR
[2020-05-21 20:00] VITALS: BP 132/69
[2020-05-21] MEDS: ATORVASTATIN 40 MG TABLET PO SCH (21:42)
[2020-05-21] MEDS: INSULIN GLARGINE, 100 UNIT/ML CARTRIDGE SQ SCH (22:02)
[2020-05-22] VITALS: BP 137/69
[2020-05-22 04:00] VITALS: BP 139/68
--- NOTE | 2020-05-22 07:30 | NUR ---
BUSINESS PROCESS ASSOCIATE OPENING NOTES PATIENT SITTING IN BED, AAO X4, GABONESE SPEAKING, SPEAKS AND UNDERSTAND VIETNAMESE, ON OXYGEN THERAPY AT 2 LPM; SATURATING WELL AT THIS TIME. NO COMPLAINS OF PAIN. SINUS RHYTHM ON MONITOR, R HAND IV ACCESS G #20, FLUSHES WELL, SITE CLEAR. CARDIAC DIET. AMBULATORY.SAFETY PRECAUTIONS IN PLACE; BED IN LOW POSITION AND LOCKED, RAILS UP X2, CALL LIGHT WITHIN REACH. WILL CONTINUE TO MONITOR PATIENT.
--- NOTE | 2020-05-22 07:40 | NUR ---
PT ON BED AWAKE A/O X 3 STILL ON O2 2L VIA NC, NO DISTRESS NOTED, NO COMPLAINT, NO SIGNIFICANT CHANGES ON CONDITION NOTED ALL NEEDS ATTENDED DROPLET ISOLATION MAINTAIN FOR COVID 19, BED ON LOWEST POSITION AND LOCKED SIDE RAILS UP X2 CALL LIGHT WITHIN REACH WILL ENDORSED TO AM SHIFT NURSE
[2020-05-22 08:00] VITALS: BP 122/74
[2020-05-22] MEDS: BLOOD SUGAR DIAGNOSTIC 1 EACH STRIP IN SCH ×4 (08:11→21:30)
[2020-05-22] MEDS: LISINOPRIL (20MG) 20 MG TABLET PO SCH (08:54)
[2020-05-22] MEDS: DEXAMETHASONE SOD PHOSPHATE 10 MG/ML VIAL IV SCH (08:54)
[2020-05-22] MEDS: AMLODIPINE BESYLATE 5 MG TABLET PO SCH (08:55)
[2020-05-22] MEDS: LORATADINE 10 MG TABLET PO SCH (08:55)
[2020-05-22] MEDS: ENOXAPARIN SODIUM 40 MG/0.4 ML DISP.SYRIN SQ SCH (08:59)
[2020-05-22] MEDS: INSULIN REGULAR, HUMAN 100 UNIT/ML 3 ML VIAL SQ PRN ×4 (08:59→21:36)
[2020-05-22] MEDS: INSULIN NPH, HUMAN ISOPHANE 100 UNIT/ML VIAL SQ SCH ×2 (09:02→17:13)
--- NOTE | 2020-05-22 09:30 | NUR ---
RN NOTES DUE MEDS GIVEN
[2020-05-22] MEDS: ACETAMINOPHEN 325 MG TABLET PO PRN (11:35)
[2020-05-22 12:00] VITALS: BP_SYST 101; BP_SYST 131; BP_DIAS 67; BP_DIAS 70
--- NOTE | 2020-05-22 12:25 | NUR ---
RN NOTES OFF NASAL CANULA PER DR. HUNT. WILL MONITOR O2 SATURATION
--- NOTE | 2020-05-22 15:10 | NUR ---
RN NOTES PATIENT OFF OXYGEN. O2 SATURATION 96%
[2020-05-22 16:00] VITALS: BP 118/52
--- NOTE | 2020-05-22 18:44 | NUR ---
POULTRY BREEDER CLOSING NOTES PATIENT RESTING IN BED, AAO X4, ST LUCIAN SPEAKING, SPEAKS AND UNDERSTAND POLISH, ON ROOM AIR, SATURATING 96% AT THIS TIME. NO COMPLAINS OF PAIN. SINUS RHYTHM ON MONITOR, R HAND IV ACCESS G #20, FLUSHES WELL, SITE CLEAR. CARDIAC DIET. AMBULATORY.SAFETY PRECAUTIONS IN PLACE; BED IN LOW POSITION AND LOCKED, RAILS UP X2, CALL LIGHT WITHIN REACH. ALL NEEDS MET AT THIS TIME. NO OTHER SIGNIFICANT CHANGE IN CONDITION. WILL ENDORSE TO NEXT SHIFT FOR KORY.
--- NOTE | 2020-05-22 19:30 | NUR ---
RN NOTES PATIENT IN BED AWAKE, A/O X4, ST LUCIAN SPEAKING. SPEAKS AND UNDERSTAND GHANAIAN. BREATHING EVEN AND UNLABORED. ON ROOM AIR SATURATING AT 96%. SINUS RHYTHM ON MONITOR, R HAND IV ACCESS G #20, INTACT AND PATENT. BED LOCKED AND IN LOWEST POSITION. SIDE RAILS UP X2. ALL SAFETY MEASURES IMPLEMENTED. CALL LIGHT WITHIN REACH. WILL CONTINUE TO MONITOR.
[2020-05-22 20:00] VITALS: BP 137/67
[2020-05-22] MEDS: ATORVASTATIN 40 MG TABLET PO SCH (21:31)
[2020-05-22] MEDS: INSULIN GLARGINE, 100 UNIT/ML CARTRIDGE SQ SCH (21:32)
[2020-05-23] VITALS: BP 150/81
[2020-05-23 04:00] VITALS: BP 138/66
--- NOTE | 2020-05-23 06:57 | NUR ---
RN NOTES PATIENT IN BED AWAKE, A/O X4, NIUEAN SPEAKING. SPEAKS AND UNDERSTAND NIGERIAN. BREATHING EVEN AND UNLABORED. ON ROOM AIR SATURATING AT 97%. SINUS RHYTHM ON MONITOR, R HAND IV ACCESS G #20, INTACT AND PATENT. ALL NEEDS ATTENDED PROMPTLY. BED LOCKED AND IN LOWEST POSITION. SIDE RAILS UP X2. ALL SAFETY MEASURES IMPLEMENTED. CALL LIGHT WITHIN REACH. WILL ENDORSE TO ONCOMING SHIFT.
--- NOTE | 2020-05-23 07:30 | NUR ---
CLINICAL TRIALS ASSISTANT OPENING NOTES PATIENT SITTING IN BED, AAO X4, SOUTH KOREAN SPEAKING, SPEAKS AND UNDERSTAND TAMAZIGHT, ON ROOM AIR AT THIS TIME. SATURATING 95%. DENIES SOB/PAIN. SINUS RHYTHM ON MONITOR, R HAND IV ACCESS G #20, FLUSHES WELL, SITE CLEAR. CARDIAC DIET. AMBULATORY.SAFETY PRECAUTIONS IN PLACE; BED IN LOW POSITION AND LOCKED, RAILS UP X2, CALL LIGHT WITHIN REACH. WILL CONTINUE TO MONITOR PATIENT.
[2020-05-23 08:00] VITALS: BP 156/64
[2020-05-23] MEDS: BLOOD SUGAR DIAGNOSTIC 1 EACH STRIP IN SCH ×4 (08:13→21:34)
[2020-05-23] MEDS: AMLODIPINE BESYLATE 5 MG TABLET PO SCH (08:55)
[2020-05-23] MEDS: LORATADINE 10 MG TABLET PO SCH (08:55)
[2020-05-23] MEDS: DEXAMETHASONE SOD PHOSPHATE 10 MG/ML VIAL IV SCH (08:55)
[2020-05-23] MEDS: LISINOPRIL (20MG) 20 MG TABLET PO SCH (08:56)
[2020-05-23] MEDS: INSULIN REGULAR, HUMAN 100 UNIT/ML 3 ML VIAL SQ PRN ×4 (08:58→21:46)
[2020-05-23] MEDS: ENOXAPARIN SODIUM 40 MG/0.4 ML DISP.SYRIN SQ SCH (08:58)
[2020-05-23] MEDS: INSULIN NPH, HUMAN ISOPHANE 100 UNIT/ML VIAL SQ SCH ×2 (09:03→17:51)
--- NOTE | 2020-05-23 09:30 | NUR ---
RN NOTES DUE MEDS GIVEN
--- NOTE | 2020-05-23 11:18 | NUR ---
PARI MUTUEL CLERK OPENING NOTES PATIENT SITTING IN BED, AAO X4, BRITISH SPEAKING, SPEAKS AND UNDERSTAND MALTESE, ON ROOM AIR AT THIS TIME. SATURATING 95%. DENIES SOB/PAIN. SINUS RHYTHM ON MONITOR, R HAND IV ACCESS G #20, FLUSHES WELL, SITE CLEAR. CARDIAC DIET. AMBULATORY.SAFETY PRECAUTIONS IN PLACE; BED IN LOW POSITION AND LOCKED, RAILS UP X2, CALL LIGHT WITHIN REACH. WILL CONTINUE TO MONITOR PATIENT.
[2020-05-23 12:00] VITALS: BP 139/59
[2020-05-23 16:00] VITALS: BP 131/69
--- NOTE | 2020-05-23 17:12 | NUR ---
RN NOTES DR. ALDO FLANNERY, NOTIFIED ABOUT PATIENT'S BLOOD SUGAR 489 MG/DL, JUST AFTER EATING SNACKS, CHIPS, COOLIES AND SWEETS FROM HOME, WILL GIVE HUM R 10 UNITS + SCHEDULED RAMIREZ N 6UNITS. NO NEW ORDERS.
--- NOTE | 2020-05-23 19:08 | NUR ---
NURSE ASSISTANT CLOSING NOTES PATIENT RESTING IN BED, AAO X4, MEXICAN SPEAKING, SPEAKS AND UNDERSTAND PORTUGUESE, ON ROOM AIR, SATURATING 96% AT THIS TIME. NO COMPLAINS OF PAIN. SINUS RHYTHM ON MONITOR, R HAND IV ACCESS G #20, FLUSHES WELL, SITE CLEAR. CCHO DIET. AMBULATORY.SAFETY PRECAUTIONS IN PLACE; BED IN LOW POSITION AND LOCKED, RAILS UP X2, CALL LIGHT WITHIN REACH. ALL NEEDS MET AT THIS TIME. NO OTHER SIGNIFICANT CHANGE IN CONDITION. WILL ENDORSE TO NEXT SHIFT FOR KORY.
--- NOTE | 2020-05-23 19:15 | NUR ---
OVERLOCK HEMMER NOTES RECEIVED PATIENT IN BED. ALERT AND ORIENTED X 4. ABLE TO COMMUNICATE NEEDS. NO RESPIRATORY DISTRESS NOTED, DENIES ANY SOB. TELE MONITOR SHOW SINUS TACHY HR 108. DENIES ANY PAIN AT THIS TIME. WITH IV ON RIGHT HAND G20, PATENT AND INTACT, FLUSHED. NO SIGNS OF INFILTRATION NO SIGNS OF INFECTION. ALL SAFETY MEASURES IMPLEMENTED PER PROTOCOL. SIDE RAILS UP X 2. BED LOCKED IN LOWEST POSITION. CALL LIGHT WITHIN REACH.
[2020-05-23] MEDS: ACETAMINOPHEN 325 MG TABLET PO PRN (19:42)
--- NOTE | 2020-05-23 19:42 | NUR ---
SALES AND SERVICE CONSULTANT NOTES PATIENT COMPLAINED OF LEFT LATERAL CHEST PAIN 08/10. NON RADIATING. TYLENOL 650 MG PO GIVEN ORDERED. WILL CONTINUE TO MONITOR.
[2020-05-23 20:00] VITALS: BP 126/55
--- NOTE | 2020-05-23 20:45 | NUR ---
RN NOTE PT RELIEVED FROM PAIN. PT SLEEPING COMFORTABLY.
[2020-05-23] MEDS: ATORVASTATIN 40 MG TABLET PO SCH (21:34)
[2020-05-23] MEDS: INSULIN GLARGINE, 100 UNIT/ML CARTRIDGE SQ SCH (21:43)
--- NOTE | 2020-05-23 22:00 | NUR ---
BILINGUAL OPERATOR NOTE BS CHECKED 483 REPEATED 458, 1O UNITS OF HUMULIN REGULAR INSULIN SQ GIVEN ALSO GIVEN LANTUS [address] AZUL INFORMED NO NEW ORDER GIVEN, CONTINUE TO MONITOR.
[2020-05-24] VITALS: BP 130/47
[2020-05-24 04:00] VITALS: BP 155/55
--- NOTE | 2020-05-24 06:35 | NUR ---
RN NOTES PATIENT REMAINS IN BED, BREATHING EVEN AND UNLABORED. O2SAT AT 96 % ON ROOM AIR. DENIES ANY SOB. DENIES ANY PAIN. ON TELE MONITOR SR HR 60. NO S/SX OF HYPO/HYPERGLYCEMIA. ABLE TO MAKE NEEDS KNOWN. ATTENDED TO NEEDS. IV ON RH REMAINS PATENT AND INTACT. CALL LIGHT WITHIN REACH. BED LOCKED IN LOWEST POSITION. SIDE RAILS UP X 2. WILL ENDORSE TO NEXT SHIFT NURSE FOR KORY.
--- NOTE | 2020-05-24 07:20 | NUR ---
ms rn received on bed, awake,alert,oriented x4,not in any form of distress,room air at this time, w/ adequate saturation, no sob noted, denies pain at this time, will monitor patient's condition.
[2020-05-24] MEDS: BLOOD SUGAR DIAGNOSTIC 1 EACH STRIP IN SCH ×3 (08:33→17:45)
[2020-05-24] MEDS: INSULIN NPH, HUMAN ISOPHANE 100 UNIT/ML VIAL SQ SCH ×2 (09:00→17:49)
--- NOTE | 2020-05-24 09:30 | NUR ---
ms keen breakfast served,due meds given,tolerated well.
[2020-05-24] MEDS: DEXAMETHASONE SOD PHOSPHATE 10 MG/ML VIAL IV SCH (09:37)
[2020-05-24] MEDS: LORATADINE 10 MG TABLET PO SCH (09:37)
[2020-05-24] MEDS: AMLODIPINE BESYLATE 5 MG TABLET PO SCH (09:38)
[2020-05-24] MEDS: LISINOPRIL (20MG) 20 MG TABLET PO SCH (09:39)
[2020-05-24] MEDS: ENOXAPARIN SODIUM 40 MG/0.4 ML DISP.SYRIN SQ SCH (09:48)
[2020-05-24] MEDS: INSULIN REGULAR, HUMAN 100 UNIT/ML 3 ML VIAL SQ PRN ×2 (12:42→17:50)
[2020-05-24 12:55] VITALS: BP 117/66
--- NOTE | 2020-05-24 14:50 | NUR ---
CORAL checked in with wheel grinder Amy regarding this patient. Per wheel grinder Amy, GULSHAN Lucero will speak with the patient and her regarding discharge. Plan: CORAL will follow-up with Case Management team regarding plan for discharge.
--- NOTE | 2020-05-24 14:59 | NUR ---
CORAL spoke with Case Management team who followed up with director of restaurant operations Amy. director of restaurant operations Amy received orders for discharge and Case Management team will set up discharge for this patient and her .
[2020-05-24 16:00] VITALS: BP 131/65
--- NOTE | 2020-05-24 18:32 | NUR ---
ms rn on bed, waiting for transportation going home ,all need s attended, daughter aware of going home tonight.
--- NOTE | 2020-05-24 19:48 | NUR ---
RN NOTE PATIENT DISCHARGE TO HOME VIA GURNEY, PICKED UP BY [facility]. NO RESPIRATORY DISTRESS NOTED. DENIES ANY SOB DENIES ANY PAIN. IV ON RIGHT HAND REMOVED AND APPLIED GAUZE. ALL BELONGINGS WERE SENT.
== END 2020-05-24 19:50 | disposition home or self-care (01) | DRG 137 ==
LOC: ER 12:43 → TELE-TD 20:56 → TELE1 22:19
PROVIDERS: ADMIT Registered Nurse; ATTEND Nurse Practitioner Acute Care
PROC: XW033E5 Introduction of Remdesivir Anti-infective into Peripheral Vein, Percutaneous Approach, New Technology Group 5 (ICD-10-PCS; principal; 2020-05-15)
PROC: XW13325 Transfusion of Convalescent Plasma (Nonautologous) into Peripheral Vein, Percutaneous Approach, New Technology Group 5 (ICD-10-PCS; 2020-05-16)
DX: U07.1 COVID-19 (principal); J12.89 Other viral pneumonia; E87.1 Hypo-osmolality and hyponatremia; E11.9 Type 2 diabetes mellitus without complications; J96.01 Acute respiratory failure with hypoxia; E66.9 Obesity, unspecified; I11.0 Hypertensive heart disease with heart failure; I50.9 Heart failure, unspecified; E86.1 Hypovolemia; E11.65 Type 2 diabetes mellitus with hyperglycemia; Z79.84 Long term (current) use of oral hypoglycemic drugs; Z79.899 Other long term (current) drug therapy; Z68.37 Body mass index [BMI] 37.0-37.9, adult; T50.2X5A Adverse effect of carbonic-anhydrase inhibitors, benzothiadiazides and other diuretics, initial encounter; Y92.9 Unspecified place or not applicable; E87.6 Hypokalemia; I70.0 Atherosclerosis of aorta; J15.9 Unspecified bacterial pneumonia; N17.9 Acute kidney failure, unspecified; T38.0X5A Adverse effect of glucocorticoids and synthetic analogues, initial encounter
CPT/HCPCS: 36415; 71045-TC; 80048-TC; 80053-TC; 80076-TC; 82550-TC; 82728-TC; 82962-TC; 83605-TC; 83615-TC; 83735-TC; 83880; 84100-TC; 84443-TC; 84484-TC; 84550-TC; 85025-TC; 85378-TC; 85610-TC; 85730-TC; 86140-TC; 86850-TC; 87040-TC; 87081-TC; 93308-TC; A4216; A6253; G0378; J0692; J0696; J1100; J1650; J1815; J7050; J7060; P9017-BL; U0003

== ENCOUNTER 2020-05-29 20:22 | Emergency (ER) | payer OTHER ==
[~2020-05-29] VITALS: Ht 157.5 cm; Wt 93.0 kg
[~2020-05-29 20:22] MED LIST: ALOG25TA2 PO; ATOR40TA PO; CALC-481 PO; GLIP10TA11 PO; HYDR25TA4 PO; LORA10TA7 PO; PIOG30TA10 PO; QUIN40TA14 PO
[2020-05-30 01:55] VITALS: BP 140/87
[2020-05-30] MEDS ORDERED: HYDROCODONE/APAP 5/325MG TABLET ONE (04:24)
[2020-05-30] MEDS ORDERED: HYDROCODONE/APAP 5/325MG TABLET PO ONE (04:30)
[2020-05-30] MEDS ORDERED: FLUCONAZOLE (100 MG) 100 MG TABLET ONE (04:41)
[2020-05-30] MEDS ORDERED: FLUCONAZOLE (100 MG) 100 MG TABLET PO ONE (05:00)
--- NOTE | 2020-05-30 05:00 | NUR ---
Patient discharged to home in stable condition. Written and verbal after care instructions given. Patient verbalizes understanding of instruction.
== END 2020-05-30 05:02 | disposition home or self-care (01) ==
LOC: ER 20:25
DX: B37.2 Candidiasis of skin and nail (principal); I10 Essential (primary) hypertension; E11.9 Type 2 diabetes mellitus without complications; Z79.84 Long term (current) use of oral hypoglycemic drugs; Z79.899 Other long term (current) drug therapy; Z86.19 Personal history of other infectious and parasitic diseases